=== PATIENT | female | born 1960 | race Caucasian/White ===

== ENCOUNTER 2018-12-22 07:05 | Observation (INO) ==
--- NOTE | 2018-12-22 07:39 | Emergency Department Note ---
Disposition Clinical Impression: Chest pain Qualifiers: Chest pain type: unspecified Qualified Code(s): R07.9 - Chest pain, unspecified Disposition: Admitted As Inpatient Condition: Fair Time of Disposition: 09:44 General Adult HPI - General Stated complaint: CP Time Seen by Provider: 12/22/18 07:07 Nursing Notes Reviewed: Yes Vital Signs Reviewed: Yes - History of Present Illness HPI Narrative: Presents with chest tightness which began at home last night and is constant but intermittently worse and is worse with exertion and she does have associated diaphoresis and dyspnea but none at this time. She denies any pleuritic aspect. There is radiation to the left shoulder and left neck but no radiation to the back. No pain or swelling of the lower extremities. 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 She said about a month ago she had some left facial droop but she checked her cranial nerves and these were all normal so she did not see a physician and then did go to the primary care doctor 2 weeks later and is waiting for follow-up with a specialist so there is no specific diagnosis of a stroke. SH: She was a smoker but stopped smoking in 2003. No alcohol. Family history: Positive for hypertension and stroke in her father but no specific history of heart disease. - Related Data Home Medications Medication Instructions Recorded Confirmed Ibuprofen [Motrin] 200 mg PO Q4HR PRN 02/22/17 02/22/17 Levothyroxine [Synthroid] [place] [address]/22/17 02/22/17 Loratadine [Claritin] 10 mg PO DAILY 02/22/17 02/22/17 Propranolol LA (24 HR) [Inderal LA] 80 mg PO DAILY 02/22/17 02/22/17 Spironolactone [Aldactone] 50 mg PO DAILY 02/22/17 02/22/17 Tramadol HCl [Ultram] 50 mg PO BID PRN 02/22/17 02/22/17 hydroCHLOROthiazide 25 mg PO DAILY 02/22/17 02/22/17 [Hydrochlorothiazide] Allergies Allergy/AdvReac Type Severity Reaction Status Date / Time codeine Allergy Hives Verified 02/22/17 10:53 moxifloxacin [From Avelox] Allergy See Verified 02/22/17 10:53 Comments prochlorperazine Allergy Hives Verified 02/22/17 10:53 [From Compazine] promethazine [From Phenergan] Allergy Hives Verified 02/22/17 10:53 All systems ED: reviewed and negative except as stated. Past Medical History - Past Medical History Medical history: Reports: arthritis, hyperlipidemia, thyroid disease Surgical history: Reports: appendectomy, hysterectomy Psychiatric history: Reports: no psych history - Social History Smoking Status: Former smoker Alcohol use: Reports: none Drug use: Reports: none Physical Exam CONSTITUTIONAL: Well-appearing; well-nourished; A&O X 3, in no apparent distress HEAD: Normocephalic; atraumatic EYES: PERRL, no scleral icterus NOSE: The nose is normal in appearance without rhinorrhea NECK: No JVD or distended neck veins RESP: Normal chest excursion with respiration; breath sounds clear and equal bilaterally; no wheezes, rhonchi, or rales CARD: Regular rhythm, without murmurs, rub or gallop ABD: Non-distended; non-tender, soft, without rigidity, rebound or guarding,no pulsatile mass CHEST: No pain with palpation SKIN: Normal for age and race; warm and dry without diaphoresis ; no apparent lesions EXTREMITIES: Pulses are 2 plus and equal times 4 extremities, no peripheral sandra ma or calf muscle pain Course Vital Signs Temperature 97.6 F 12/22/18 07:25 Pulse Rate 54 12/22/18 07:25 Respiratory Rate 15 12/22/18 07:25 Blood Pressure 136/83 12/22/18 07:25 O2 Sat by Pulse Oximetry 100 12/22/18 07:25 Temperature 97.6 F 12/22/18 07:34 Pulse Rate 52 12/22/18 09:22 Respiratory Rate 12 12/22/18 09:22 Blood Pressure 94/68 12/22/18 09:22 O2 Sat by Pulse Oximetry 98 12/22/18 09:22 Oxygen Delivery Oxygen Delivery Room Air Medical Decision Making - MDM Narrative Medical decision making narrative: Patient's symptoms are concerning for ACS and I did review her EKG which shows sinus bradycardia with a rate of 54 and I do not see evidence of acute ischemic change and there is no evidence of arrhythmia so we do have testing which will include troponin testing and I do not feel the patient has a pulmonary embolism as there is no pain or swelling of the lower extremities either subjectively or my exam and there is no radiation to the back. I will not able to reproduce the pain with palpation. Test results pending. [id number] I did review the test results which did come back negative and then spoke with the patient and her and they do request a d-dimer because of the low oxygen level last night when she checked her saturation and I did a d-dimer and this came back negative also. The patient does have a negative chest x-ray. I have seen her multiple occasions and spoke with her and her and updated them on the results of the tests. The patient does have a concerning story with the chest pain and diaphoresis and dyspnea and radiation to left shoulder and jaw as well as history of a positive stress test 10 years ago although of note she did have a subsequent catheterization 10 years ago which was negative. She will be admitted to the hospital and I did speak with the hospitalist who accepts the patient for admission. [id number] - Medical Records Medical records reviewed: Yes I reviewed the patient's medical records. - Lab Data Lab results reviewed: Yes I reviewed the patient's lab results. Result diagrams: 12/22/18 07:32 12/22/18 07:32 Lab Results 12/22/18 12/22/18 12/22/18 Range/Units 07:32 07:32 08:39 WBC 4.4 (4.3-11.1) K/mcL RBC 3.76 L (3.82-4.97) M/mcL Hgb 12.4 (11.5-15.4) g/dL Hct 35.1 L (35.3-44.9) % MCV 93.4 (83.0-100.0) fL MCH 33.0 (28.0-33.3) pg MCHC 35.3 (31.6-35.5) g/dL RDW 11.9 (11.5-14.5) % Plt Count 227 (140-400) K/mcL MPV 10.2 (9.4-12.4) fL Immature Gran % 0.2 (0-4) % Seg Neutrophils % 47.8 % Lymphocytes % 38.4 % Monocytes % 11.1 % Eosinophils % 1.8 % Basophils % 0.7 % Neutrophils # 2.1 (1.6-8.9) K/mcL Lymphocytes # 1.7 (0.6-4.6) K/mcL Monocytes # 0.5 (0.0-1.3) K/mcL Eosinophils # 0.1 (0.0-0.6) K/mcL Basophils # 0.0 (0.0-0.2) K/mcL D-Dimer 247 (0-500) ng/mLFEU Sodium 137 (136-145) mEq/L Potassium 3.3 L (3.5-5.1) mEq/L Chloride 102 (98-107) mEq/L Carbon Dioxide 28 (23-29) mEq/L BUN 27 H (6-20) mg/dL Creatinine 0.68 (0.60-1.20) mg/dL Est GFR ( Amer) > 60 (> 60) Est GFR (Non-Af Amer) > 60 (> 60) BUN/Creatinine Ratio 40 H (6-26) Glucose 104 (70-105) mg/dL Calculated Osmolality 289 (280-300) Calcium 9.9 (8.6-10.3) mg/dL Troponin I < 0.03 (< 0.04) ng/mL - Radiology Data Radiology results reviewed: Yes I reviewed the patient's radiology results.
[2018-12-22 07:43] LABS: Basophils % 0.7 %; Eosinophils # 0.1 K/mcL (0.0-0.6); Eosinophils % 1.8 %; Hematocrit 35.1 % (35.3-44.9); Hemoglobin 12.4 g/dL (11.5-15.4); Immature Granulocytes % 0.2 % (0-4); Lymphocytes # 1.7 K/mcL (0.6-4.6); Lymphocytes % 38.4 %; Mean Corpuscular HGB Conc 35.3 g/dL (31.6-35.5); Mean Corpuscular Volume 93.4 fL (83.0-100.0); Mean Platelet Volume 10.2 fL (9.4-12.4); Monocytes # 0.5 K/mcL (0.0-1.3); Monocytes % 11.1 %; Neutrophils # 2.1 K/mcL (1.6-8.9); Platelet Count 227 K/mcL (140-400); Red Blood Count 3.76 M/mcL (3.82-4.97); Red Cell Distribution Width 11.9 % (11.5-14.5); Segmented Neutrophils % 47.8 %
[2018-12-22] MEDS ORDERED: Ibuprofen 600 MG TABLET PO ONE (08:03)
[2018-12-22 08:06] LABS: BUN/Creatinine Ratio 40 (6-26); Blood Urea Nitrogen 27 mg/dL (6-20); Calcium 9.9 mg/dL (8.6-10.3); Carbon Dioxide 28 mEq/L (23-29); Chloride 102 mEq/L (98-107); Glucose 104 mg/dL (70-105); Osmolality,Calculated 289 (280-300); Potassium 3.3 mEq/L (3.5-5.1); Sodium 137 mEq/L (136-145); Troponin I < 0.03 ng/mL (< 0.04); eGFR For Non-African Americans > 60 (> 60)
[2018-12-22] MEDS ORDERED: Ondansetron 4 MG/2 ML VIAL IVP ONE (08:21)
[2018-12-22] MEDS ORDERED: Naloxone 0.4 MG/ML INJ IVP PRN (10:04)
[2018-12-22] MEDS ORDERED: traMADol 50 MG TABLET PO PRN (10:04)
[2018-12-22] MEDS: Nitroglycerin 0.4 MG TAB.SUBL SL PRN ×3 (10:54→18:02)
[2018-12-22] MEDS: Aspirin Enteric Coated 81 MG Tablet PO SCH (10:54)
[2018-12-22] MEDS ORDERED: *HR* Morphine 2 MG/ML SYRINGE IVP STA (11:01)
[2018-12-22] MEDS ORDERED: Isovue-370 500 ML BOTTLE IVP ONE (12:07)
[2018-12-22] MEDS: Nitroglycerin 25 MG/250 ML INFUS..BTL IVC SCH (12:45)
--- NOTE | 2018-12-22 13:12 | Internal Med History&Physical ---
Date of Encounter: 12/22/18 Time of Encounter: 13:03 Internal Medicine - H&P: HPI Chief complaint: chest pain Plans for Post Hospital Care: Home History of present illness: Ms. Mcghee is a 58 year old female PMH of hypothyroidism, hypertension, essential tremors, PVCs. Patient presented to the ED due to chest pain. Patient reports intermittent chest pain for the past 6 months. Usually at night. Reports that last night at around 8pm she started having retro-sternal chest pain associated with shortness of breath, and lightheadedness, the pain lasted about 30 minutes and she decided to stay home because she thought this was just another episode of her usual chest discomfort, but today morning she started having 8/10 retro-sternal chest pain radiating to her left arm and jaw, lasting around 20 minutes and decided to come to the ED to be checked. Denies abdominal pain, headache, or urinary symptoms. Past Med Surg Social Fam HX - Past Medical History Medical history: arthritis, hyperlipidemia, thyroid disease Additional medical history: Fibromyalgia, Arrhythmia with PVCs. Essential tremors Psychiatric history: no psych history - Past Surgical History Surgical History: appendectomy, hysterectomy Additional surgical history: Left hip rx. Left Breast Biopsy. Tonsils. Tubal ligation. CTR. Cervical Discectomy - Social History Smoking Status: Former smoker Smokeless Tobacco Status: No Alcohol use: none Drug use: none Internal Medicine - H&P: Meds Ibuprofen [Motrin] 800 mg PO HS PRN 02/22/17 [History] Levothyroxine [Synthroid] 75 mcg PO QAM 02/22/17 [History] RX: Loratadine [Claritin] 10 mg PO DAILY 02/22/17 [History] RX: hydroCHLOROthiazide [Hydrochlorothiazide] 25 mg PO DAILY 02/22/17 [History] Ibuprofen [Ibu-200] 600 mg PO DAILY PRN 12/22/18 [History] Phenytoin ER [Dilantin ER] 100 mg PO BID 12/22/18 [History] Propranolol HCl [Innopran Xl] 80 mg PO DAILY 12/22/18 [History] RX: Lisinopril [Zestril] 2.5 mg PO DAILY 12/22/18 [History] Allergy/AdvReac Type Severity Reaction Status Date / Time codeine Allergy Hives Verified 02/22/17 10:53 moxifloxacin [From Avelox] Allergy See Verified 02/22/17 10:53 Comments prochlorperazine Allergy Hives Verified 02/22/17 10:53 [From Compazine] promethazine [From Phenergan] Allergy Hives Verified 02/22/17 10:53 All Systems PM: A 10-system review of systems was performed and is negative for pertinent findings except as documented above in the HPI. - Constitutional Constitutional: no chills, no fever(s), no weakness - EENT Eyes: no blurry vision, no irritation Nose, mouth and throat: no dry mouth, no mouth pain - Cardiovascular Cardiovascular ROS IM: chest pain, dyspnea, no dyspnea on exertion, no lightheadedness, no palpitations, no paroxysmal nocturnal dyspnea - Respiratory Respiratory: no cough, no wheezing - Gastrointestinal Gastrointestinal: nausea, no abdominal pain, no vomiting - Genitourinary Genitourinary: no dysuria, no urinary frequency, no urinary incontinence, no urinary urgency - Musculoskeletal Musculoskeletal ROS IM: no atrophy, no muscle weakness - Integumentary Integumentary IM: no erythema - Neurological Neurological ROS: no headache(s), no tremor(s), no weakness - Psychiatric Psychiatric: no anxiety, no hopelessness - Endocrine Endocrine IM: no cold intolerance, no excessive sweating - Hematologic/Lymphatic Hematologic/Lymphatic: no lymphadenopathy - Allergic/Immunologic Allergic/Immunologic: no GI upset with certain foods Additional comments: Rest of the review of system negative - Constitutional Vitals: Temp Pulse Resp BP Pulse Ox 98.5 F 51 16 120/48 97 12/22/18 10:50 12/22/18 10:50 12/22/18 10:50 12/22/18 10:50 12/22/18 10:50 Exam: Vitals: Reviewed. General: Alert and oriented x4. In mild distress due to chest pain Skin: Normal color, no rash, no lesions. HEENT: EOM, pupils equal, round and reactive. Cardiovascular: RRR, normal S1 & S2, no rubs, murmurs or gallops. Lungs: CTA b/l, no wheezes or crackles. Abdomen: Soft, non-tender, no rigidity. Extremities: No deformity, no edema or tenderness, no joint swelling or clubbing. Neurological: Normal cognition and motor skills. Rest of the physical exam is non contributory Internal Med - H&P Results - Labs CBC & Chem 7: 12/22/18 07:32 12/22/18 07:32 Labs: Short CBC 12/22/18 Range/Units 07:32 WBC 4.4 (4.3-11.1) K/mcL Hgb 12.4 (11.5-15.4) g/dL Hct 35.1 L (35.3-44.9) % Plt Count 227 (140-400) K/mcL Neutrophils # 2.1 (1.6-8.9) K/mcL BMP 12/22/18 07:32 Sodium 137 Potassium 3.3 L Chloride 102 Carbon Dioxide 28 BUN 27 H Creatinine 0.68 Glucose 104 Calcium 9.9 Cardiac Enzymes 12/22/18 Range/Units 07:32 Troponin I < 0.03 (< 0.04) ng/mL - Impressions ITS Impressions Chest X-Ray 12/22/18 07:25 IMPRESSION: No acute cardiopulmonary findings. D/ / Neelima Gold MD / Neelima Gold MD Interpreting Provider: Neelima Gold MD - Diagnostic Studies Chest x-ray Status: image reviewed by me (No acute findings ) - Assessment and Plan (1) Chest pain Current Visit: Yes Status: Acute Assessment and plan: possible unstable angina. patient continues to reports chest pain despite IV pain medication Plan Serial troponin EKG started on a nitroglycerin drip Nitroglycerin 0.5 sublingual 3 every 15 minute when necessary BB held due to bradycardia Aspirin 81 mg by mouth daily TTE and cardiac nuclear stress test ordered Telemetry monitoring Discussed with cardiology [employer], they will evaluate the patient following TTE and stress test report. Qualifiers: Chest pain type: unspecified Qualified Code(s): R07.9 - Chest pain, unspecified (2) Hypothyroidism Current Visit: Yes Status: Chronic Assessment and plan: On levothyroxine 75 mcg/PO daily Qualifiers: Hypothyroidism type: unspecified Qualified Code(s): E03.9 - Hypothyroidism, unspecified (3) Hypertension Current Visit: Yes Status: Chronic Assessment and plan: Patient is on hydrochlorothiazide and lisinopril. Hold home antihypertensive medication as patient is started on a nitroglycerin drip Qualifiers: Hypertension type: unspecified Qualified Code(s): I10 - Essential (primary) hypertension (4) DVT prophylaxis Current Visit: Yes Status: Chronic Assessment and plan: Heparin subcutaneous. (5) Essential tremor Current Visit: Yes Status: Chronic Assessment and plan: patient on propranolol. hold medication as patient is bradycardic - Time Spent With Patient Total time spent is greater than 50% in coordination of care (as documented) at patient's floor/unit and/or counseling patient: Greater than 35 minutes (45)
[2018-12-22] MEDS: *HR* Heparin 5,000 UNIT/ML VIAL SQ SCH ×2 (15:03→23:11)
[2018-12-22] MEDS ORDERED: *HR* Morphine 2 MG/ML SYRINGE IVP ONE (18:11)
[2018-12-22] MEDS ORDERED: *HR* LORazepam 0.5 MG TABLET PO ONE (21:56)
[2018-12-23 01:12] LABS: Basophils % 0.8 %; Eosinophils # 0.1 K/mcL (0.0-0.6); Eosinophils % 2.3 %; Hematocrit 33.9 % (35.3-44.9); Hemoglobin 11.8 g/dL (11.5-15.4); Immature Granulocytes % 0.3 % (0-4); Lymphocytes # 1.9 K/mcL (0.6-4.6); Lymphocytes % 48.7 %; Mean Corpuscular HGB Conc 34.8 g/dL (31.6-35.5); Mean Corpuscular Hemoglobin 32.8 pg (28.0-33.3); Mean Corpuscular Volume 94.2 fL (83.0-100.0); Mean Platelet Volume 10.4 fL (9.4-12.4); Monocytes # 0.4 K/mcL (0.0-1.3); Monocytes % 9.6 %; Neutrophils # 1.5 K/mcL (1.6-8.9); Platelet Count 202 K/mcL (140-400); Segmented Neutrophils % 38.3 %
[2018-12-23 01:32] LABS: BUN/Creatinine Ratio 23 (6-26); Blood Urea Nitrogen 15 mg/dL (6-20); Calcium 9.2 mg/dL (8.6-10.3); Carbon Dioxide 26 mEq/L (23-29); Chloride 105 mEq/L (98-107); Glucose 139 mg/dL (70-105); Osmolality,Calculated 287 (280-300); Phosphorous 3.5 mg/dL (2.7-4.5); Potassium 3.6 mEq/L (3.5-5.1); Sodium 137 mEq/L (136-145); eGFR For Non-African Americans > 60 (> 60)
[2018-12-23] MEDS: *HR* Heparin 5,000 UNIT/ML VIAL SQ SCH ×3 (05:56→21:51)
[2018-12-23] MEDS ORDERED: Regadenoson 0.4 MG/5 ML SYRINGE IVP ONE (06:17)
[2018-12-23] MEDS: Aspirin Enteric Coated 81 MG Tablet PO SCH (09:47)
--- NOTE | 2018-12-23 10:39 | Internal Med Progress Note ---
Hospitalist Progress Note - Encounter Date of Encounter: 12/23/18 Time of Encounter: 10:37 - Subjective Interval History: Patient seen and examined with family present at bedside. Pt is s/p stress test this morning. She states she had pressure like chest pain prior to initiation of the stress test and reports of being hypotensive during the test, and required IV fluid resuscitation. Currently she is resting in bed and states she is comfortably and denies any headache, dizziness, lightheadedness, chest pain, palpitations, or shortness of breath. No overnight events reported Ten point ROS is negative except as listed above - Exam Vitals: Temp Pulse Resp BP Pulse Ox 98.2 F 68 18 131/74 98 12/23/18 10:05 12/23/18 10:05 12/23/18 10:05 12/23/18 10:05 12/23/18 10:05 Exam: General: Alert and oriented x3. No acute distress Skin: Normal color, no rash, no lesions. HEENT: EOMI, PERRLA NC/AT, no scleral icterus Cardiovascular: RRR, normal S1 & S2, no rubs, murmurs or gallops. Lungs: CTA b/l, no wheezes or crackles. Abdomen: Soft, non-tender, no rigidity. Extremities: No deformity, no edema or tenderness, no joint swelling or clubb ing. Neurological: Normal cognition and motor skills. Rest of the physical exam is non contributory - Assessment and Plan (1) Chest pain Current Visit: Yes Status: Acute Assessment and Plan: possible unstable angina. patient continues to report of intermittent left sided chest pain with radiation to the jaw and left arm s/p stress test today (12/23/18), report pending serial troponin negative thus far 2D echo report reviewed cardiology evaluation has been requested continue Aspirin 81mg PO qdaily holding BB due to hypotensive episode earlier today. BP and HR within acceptable range at this time continue Telemetry monitoring (2) Hypothyroidism Current Visit: Yes Status: Chronic Assessment and Plan: Continue home dose of levothyroxine 75 mcg/PO daily (3) Hypertension Current Visit: Yes Status: Chronic Assessment and Plan: BP within acceptable range despite holding antihypertensive medications was reported of being hypotensive this morning requiring IV fluid resuscitation will hold antihypertensive meds at this time continue to closely monitor BP (4) DVT prophylaxis Current Visit: Yes Status: Chronic Assessment and Plan: Heparin subcutaneous. (5) Essential tremor Current Visit: Yes Status: Chronic Assessment and Plan: Holding home dose of BB due to bradycardia and hypotension clinically asymptomatic at this time - Time Spent with Patient Total time spent is greater than 50% in coordination of care (as documented) at patient's floor/unit and/or counseling patient: 25 - 35 minutes (patient/family/RN/consulting provider) Plan of Care Discussed with: patient Internal Medicine: Result - Labs CBC & Chem 7: 12/23/18 00:53 12/23/18 00:53 Labs: Short CBC 12/23/18 Range/Units 00:53 WBC 3.8 L (4.3-11.1) K/mcL Hgb 11.8 (11.5-15.4) g/dL Hct 33.9 L (35.3-44.9) % Plt Count 202 (140-400) K/mcL Neutrophils # 1.5 L (1.6-8.9) K/mcL BMP 12/23/18 00:53 Sodium 137 Potassium 3.6 Chloride 105 Carbon Dioxide 26 BUN 15 Creatinine 0.64 Glucose 139 H Calcium 9.2 Cardiac Enzymes 12/22/18 12/22/18 12/23/18 Range/Units 13:09 18:55 00:53 Troponin I < 0.03 < 0.03 < 0.03 (< 0.04) ng/mL - ABG Interpretation ABG results: PT/INR, D-dimer D-Dimer 247 ng/mLFEU (0-500) 12/22/18 08:39 - Impressions Impressions Echocardiogram 12/22/18 10:10 Impressions: LVEF 60%. Normal LV chamber size, wall thickness and function. Mild left ventricular diastolic dysfunction. Normal right ventricular structure and function. No evidence of pulmonary hypertension. No significant valvular dysfunction. Left Ventricular Wall Motion: Rest Echo Findings All wall segments showed normal motion. Findings: Study Quality * Technically adequate exam. ECG Findings * Sinus bradycardia. Left Ventricle * LVEF 60%. * Normal LV chamber size, wall thickness and function. * Mild left ventricular diastolic dysfunction. Right Ventricle * Normal right ventricular structure and function. Left Atrium * Normal left atrial size. Right Atrium * Normal right atrial size. Aortic Valve * Trileaflet aortic valve. * No aortic stenosis. * Trace aortic regurgitation. Mitral Valve * Normal mitral valve structure and function. * No mitral stenosis. * Trace mitral regurgitation. Tricuspid Valve * Normal tricuspid valve structure and function. * Trace tricuspid regurgitation. * No evidence of pulmonary hypertension. Pulmonic Valve * Pulmonic valve is not well visualized. * No pulmonic regurgitation. Aorta * Normally sized aortic root. Pericardium * The pericardium appears normal. IVC * Normal IVC dimensions and inspiratory collapse. Pulmonary Artery * Normal visualized portions of the main pulmonary artery. CT Dissection 12/22/18 12:07 IMPRESSION: No evidence of aortic dissection. D/ / 12/22/2018 14:37:39 Lawson Rojas MD / david rabago Interpreting Provider: Lawson Rojas MD Consult Discharge Plan - Plan Referrals: Varghese Muhammad DO [Primary Care Provider] - (This office closes at noon on Fridays. Pt will need to make own follow up appointment if she leaves over the weekend) (1) Chest pain Qualifiers: Chest pain type: unspecified Qualified Code(s): R07.9 - Chest pain, unspecified (2) Hypothyroidism Qualifiers: Hypothyroidism type: unspecified Qualified Code(s): E03.9 - Hypothyroidism, unspecified (3) Hypertension Qualifiers: Hypertension type: unspecified Qualified Code(s): I10 - Essential (primary) hypertension
[2018-12-23] MEDS: Nitroglycerin 25 MG/250 ML INFUS..BTL IVC SCH (13:27)
[2018-12-23] MEDS: Nitroglycerin 0.4 MG TAB.SUBL SL PRN ×2 (13:31→13:44)
[2018-12-23] MEDS ORDERED: *HR* LORazepam 0.5 MG TABLET PO ONE (22:45)
[2018-12-24] MEDS: *HR* Heparin 5,000 UNIT/ML VIAL SQ SCH (05:37)
[2018-12-24] MEDS: Aspirin Enteric Coated 81 MG Tablet PO SCH (07:12)
[2018-12-24 07:13] VITALS: BP 112/72
--- NOTE | 2018-12-24 09:22 | Cardiology Consult Note ---
Addendum entered and electronically signed by Efrain Jacobson MD 12/24/18 12:35: I examined this patient and my medical decision-making was reviewed with the LIGHTOUT EXAMINER. I agree with the documented findings, disposition and treatment plan as described except to the extent set forth below. A/P: Chest pain ruled out HI with negative stress test Dyslipidemia HTN At this point, no indication for LHC. Add imdur 30mg and dc ACEI. If continued concern of sxs, consider outpt cardiac CT Thank you for the consult and allowing me to participate in your patient's care Efrain Jacobson MD [facility] Original Note: Date of Encounter: 12/24/18 Time of Encounter: 09:21 Assessment and Plan (1) Chest pain Current Visit: Yes Status: Acute Intermittent CP x 6 months with typical and atypical features. Risk factors for CAD include HLD, HTN. Episode that prompted admission was chest pain associated with shortness of breath, and lightheadedness, radiating to her left arm and jaw. Troponins were negative, nuclear stress test negative for ischemia or infarct. TTE EF preserved. Pt has continued to have intermittent CP while inpt. Will discuss with Dr. Jacobson to determine if further ischemic eval (LHC) is war ranted. Qualifiers: Chest pain type: unspecified Qualified Code(s): R07.9 - Chest pain, unspecified Discussion w patient/family: The assessment and plan as outlined above was discussed with the patient and/or family members who expressed understanding and agreement. All questions were answered. Thank you for involving us in the care of your patient. Please call with any questions. I will discuss and review with Dr. Jacobson and make changes as necessary. History of Present Illness Consult date: 12/24/18 Requesting physician: Kat Harris Consult reason: chest pain Chief complaint: Chest pain History of present illness: Ms. Mcghee is a 58 year old female with PMH of HLD, HTN, PVCs, hypothyroidism, seizure w/o clear trauma (last 1996), tremor, cervical radiculopathy hardware, left KETURAH that presents to ED for chest pain. It has been intermittent for the past 6 months, at rest and exertion. Episode that prompted admission was chest pain associated with shortness of breath, and lightheadedness, radiating to her left arm and jaw. Sometimes relieved with nitro. Troponins were negative, nuclear stress test negative for ischemia or infarct. TTE EF preserved. Pt has continued to have intermittent CP while inpt. Cardiology consulted for further recs. Past Med Surg Social Fam HX - Past Medical History Medical history: arthritis, hyperlipidemia, thyroid disease Additional medical history: Fibromyalgia, Arrhythmia with PVCs. Essential tremors Psychiatric history: no psych history - Past Surgical History Surgical History: appendectomy, hysterectomy Additional surgical history: Left hip rx. Left Breast Biopsy. Tonsils. Tubal ligation. CTR. Cervical Discectomy - Social History Smoking Status: Former smoker Smokeless Tobacco Status: No Alcohol use: none Drug use: none Medications and Allergies Ibuprofen [Motrin] 800 mg PO HS PRN 02/22/17 [History] Levothyroxine [Synthroid] 75 mcg PO QAM 02/22/17 [History] Loratadine [Claritin] 10 mg PO DAILY 02/22/17 [History] hydroCHLOROthiazide [Hydrochlorothiazide] 25 mg PO DAILY 02/22/17 [History] Ibuprofen [Ibu-200] 600 mg PO DAILY PRN 12/22/18 [History] Lisinopril [Zestril] 2.5 mg PO DAILY 12/22/18 [History] Phenytoin ER [Dilantin ER] 100 mg PO BID 12/22/18 [History] Propranolol HCl [Innopran Xl] 80 mg PO DAILY 12/22/18 [History] Allergy/AdvReac Type Severity Reaction Status Date / Time codeine Allergy Hives Verified 02/22/17 10:53 moxifloxacin [From Avelox] Allergy See Verified 02/22/17 10:53 Comments prochlorperazine Allergy Hives Verified 02/22/17 10:53 [From Compazine] promethazine [From Phenergan] Allergy Hives Verified 02/22/17 10:53 All Systems Review: The remainder of the systems were reviewed and are negative - Cardiovascular Cardiovascular: as per HPI, chest pain at rest, chest pain with exertion, radiating jaw, neck or arm pain, lightheadedness Physical Examination Vital Signs, Last 4 Hours Temp Pulse Resp BP Pulse Ox 12/24/18 07:12 98.2 F 58 18 112/72 95 Vital Signs Temp Pulse Resp BP Pulse Ox 12/24/18 07:12 98.2 F 58 18 112/72 95 12/24/18 03:28 97.7 F 53 16 116/69 96 12/23/18 23:07 98.0 F 57 16 108/66 97 12/23/18 19:40 98.5 F 58 18 97/61 96 12/23/18 16:27 98.2 F 62 18 108/67 97 12/23/18 11:39 98.2 F 61 18 93/56 100 12/23/18 10:05 98.2 F 68 18 131/74 98 Intake and Output 12/23/18 12/24/18 12/24/18 23:59 07:59 15:59 Intake Total 700 / 700 Output Total 500 / 500 1600 / 1600 Balance 200 / 200 -1600 / -1600 Intake: Oral 700 / 700 Output: Urine 500 / 500 1600 / 1600 Other: Weight 53.3 kg Patient Weight 12/24/18 23:59 Weight 53.3 kg General: Conversant, No Apparent Distress HEENT: Atraumatic, Normocephaly, Mucus Membranes Moist Neck: No JVD, Normal carotid pulses Cardiac: Reg Rate and Rhythm, Normal S1 and S2, No Murmur Lungs: Normal Breath Sounds, No Wheeze, Rales, Rhonchi Neuro: Alert and responsive, No focal deficits noted Abdomen: Soft, Non-Tender Skin: No rashes noted on visualized skin Musculoskeletal: No Chest Wall Tenderness Extremities: No Clubbing, No Cyanosis, No Edema, Normal Pulses Results 12/23/18 00:53 12/23/18 00:53 Active Medications Aspirin (Aspirin Ec) 81 mg PO DAILY [facility] Stop: 06/23/19 10:16 Last Admin: 12/24/18 07:12 Dose: 81 mg Heparin Sodium (Porcine) (Heparin) 5,000 unit SQ Q8HCO [facility] Stop: 06/23/19 14:01 Last Admin: 12/24/18 05:37 Dose: 5,000 unit Nitroglycerin (Nitroglycerin Premix 25 Mg/250 Ml) 25 mg in 250 mls @ 3 mls/hr IVC .Q24H [facility]; Protocol Stop: 06/23/19 12:16 Last Admin: 12/23/18 13:27 Dose: Not Given Levothyroxine Sodium (Synthroid) 75 mcg PO DAILY@0630 [facility] Stop: 06/24/19 06:31 Last Admin: 12/24/18 05:37 Dose: 75 mcg Naloxone HCl (Narcan) 0.4 mg IVP Q2M PRN PRN Reason: SEE COMMENTS Stop: 06/23/19 10:05 Nitroglycerin (Nitroglycerin) 0.4 mg SL Q5M PRN PRN Reason: Chest Pain Stop: 06/23/19 10:22 Last Admin: 12/23/18 13:44 Dose: 0.4 mg Phenytoin (Dilantin) 100 mg PO Q12HR [facility] Stop: 06/23/19 18:01 Last Admin: 12/24/18 05:37 Dose: 100 mg Tramadol HCl (Ultram) 50 mg PO Q6HR PRN PRN Reason: Moderate Pain Stop: 06/23/19 10:05 - Imaging and Cardiology Stress Test: report reviewed Echo: report reviewed - EKG Interpretation EKG results cardiology: personally reviewed (SR), other (12 hr tele AVG HR 56, SR) Consult Discharge Plan - Plan Referrals: Varghese Muhammad, [Primary Care Provider] - (This office closes at noon on Fridays. Pt will need to make own follow up appointment if she leaves over the weekend)
[2018-12-24 09:33] LABS: Basophils % 0.6 %; Eosinophils # 0.1 K/mcL (0.0-0.6); Eosinophils % 2.2 %; Hematocrit 35.8 % (35.3-44.9); Hemoglobin 12.2 g/dL (11.5-15.4); Immature Granulocytes % 0.3 % (0-4); Lymphocytes # 1.6 K/mcL (0.6-4.6); Lymphocytes % 50.3 %; Mean Corpuscular HGB Conc 34.1 g/dL (31.6-35.5); Mean Corpuscular Hemoglobin 32.6 pg (28.0-33.3); Mean Corpuscular Volume 95.7 fL (83.0-100.0); Mean Platelet Volume 10.2 fL (9.4-12.4); Monocytes # 0.3 K/mcL (0.0-1.3); Monocytes % 9.4 %; Neutrophils # 1.2 K/mcL (1.6-8.9); Platelet Count 206 K/mcL (140-400); Red Blood Count 3.74 M/mcL (3.82-4.97); Segmented Neutrophils % 37.2 %
[2018-12-24 09:36] LABS: BUN/Creatinine Ratio 28 (6-26); Blood Urea Nitrogen 17 mg/dL (6-20); Calcium 9.6 mg/dL (8.6-10.3); Carbon Dioxide 24 mEq/L (23-29); Chloride 104 mEq/L (98-107); Glucose 95 mg/dL (70-105); Osmolality,Calculated 283 (280-300); Phosphorous 3.7 mg/dL (2.7-4.5); Potassium 3.7 mEq/L (3.5-5.1); Sodium 136 mEq/L (136-145); eGFR For Non-African Americans > 60 (> 60)
--- NOTE | 2018-12-24 10:27 | Discharge Summary ---
- NOTES TO OUTPATIENT PROVIDER Notes to Outpatient Provider: Patient was admitted for evaluation of chest pain and underwent nuclear stress test. Stress test was negative for ischemic perfusion defect. She was noted to be hypotensive due to which her home dose of Lisinopril was discontinued and patient was recommended to hold HCTZ and Propranolol for SBP<100. Please closely monitor patient's BP and adjust antihypertensive medications as needed. Orders not resulted at time of discharge: Pending orders 12/22/18 10:11 NM kayley perf SPECT multi [NM] Routine Date of Encounter: 12/24/18 Time of Encounter: 10:03 - Discharge Diagnosis (1) Chest pain Priority: Primary Status: Resolved Qualifiers: Chest pain type: unspecified Qualified Code(s): R07.9 - Chest pain, unspecified (2) Hypothyroidism Priority: Secondary Status: Chronic Qualifiers: Hypothyroidism type: unspecified Qualified Code(s): E03.9 - Hypothyroidism, unspecified (3) Hypertension Priority: Secondary Status: Chronic Qualifiers: Hypertension type: unspecified Qualified Code(s): I10 - Essential (primary) hypertension (4) DVT prophylaxis Priority: Secondary Status: Chronic (5) Essential tremor Priority: Secondary Status: Chronic Hospital course: Ms. Mcghee is a 58 year old female with PMH of HTN, Hypothyroidism, essential t remors who was admitted for management of chest pain. Pt underwent nuclear stress test and had a 2D echo. Cardiac workup was negative for ACS. Cardiology evaluated the patient and outpatient follow up was recommended. Pt was noted to be hypotensive and bradycardic due to which her home BP meds were readjusted. Pt is currently chest pain free and medically stable for discharge to home with outpatient follow up with PCP and cardiology. Pt is seen and examined on the day of discharge. She demonstrates understanding of her hospital course and agrees with the discharge care and plan. Discharge discussed with: patient, nurse, rehabilitation consultant - Time Spent with Patient Total time spent providing and/or coordinating discharge services: 25 minutes Time spent: Less than 30 minutes - Discharge Medications Prescriptions: Continue Ibuprofen [Motrin] 800 mg PO HS PRN PRN Reason: Pain hydroCHLOROthiazide [Hydrochlorothiazide] 25 mg PO DAILY Loratadine [Claritin] 10 mg PO DAILY Levothyroxine [Synthroid] 75 mcg PO QAM Phenytoin ER [Dilantin ER] 100 mg PO BID Ibuprofen [Ibu-200] 600 mg PO DAILY PRN PRN Reason: Pain Propranolol HCl [Innopran Xl] 80 mg PO DAILY #0 Discontinued Lisinopril [Zestril] 2.5 mg PO DAILY Home Medications: Ibuprofen [Motrin] 800 mg PO HS PRN 02/22/17 [History] Levothyroxine [Synthroid] 75 mcg PO QAM 02/22/17 [History] Loratadine [Claritin] 10 mg PO DAILY 02/22/17 [History] hydroCHLOROthiazide [Hydrochlorothiazide] 25 mg PO DAILY 02/22/17 [History] Ibuprofen [Ibu-200] 600 mg PO DAILY PRN 12/22/18 [History] Phenytoin ER [Dilantin ER] 100 mg PO BID 12/22/18 [History] Propranolol HCl [Innopran Xl] 80 mg PO DAILY #0 12/24/18 [Rx] Allergies/Adverse Reactions: Allergy/AdvReac Type Severity Reaction Status Date / Time codeine Allergy Hives Verified 02/22/17 10:53 moxifloxacin [From Avelox] Allergy See Verified 02/22/17 10:53 Comments prochlorperazine Allergy Hives Verified 02/22/17 10:53 [From Compazine] promethazine [From Phenergan] Allergy Hives Verified 02/22/17 10:53 Date of admission: 12/22/18 09:47 Primary care physician: Varghese Muhammad Consults: 12/23/18 17:02 Consult to Cardiology [CONS] Routine Comment: Consulting Provider: Cardiology Shwetha Reason for Consult: Chest Pain Call Completed: No Discharging clinician: Kat Harris Anticipated date of discharge: 12/24/18 - Constitutional Vitals: Temp Pulse Resp BP Pulse Ox 98.2 F 58 18 112/72 95 12/24/18 07:12 12/24/18 07:12 12/24/18 07:12 12/24/18 07:12 12/24/18 07:12 Exam: General: Alert and oriented x3. No acute distress Skin: Normal color, no rash, no lesions. HEENT: EOMI, PERRLA NC/AT, no scleral icterus Cardiovascular: RRR, normal S1 & S2, no rubs, murmurs or gallops. Lungs: CTA b/l, no wheezes or crackles. Abdomen: Soft, non-tender, no rigidity. Extremities: No deformity, no edema or tenderness, no joint swelling or clubbing. Neurological: Normal cognition and motor skills. Rest of the physical exam is non contributory - Patient Status Disposition: Home, Self-Care Condition: Fair Functional capacity at discharge: independent ambulation Overall status at discharge: patient is back to baseline - Discharge Instructions Instructions: Chest Pain (DC) Follow Up With: Efrain Jacobson MD [Partnered Physician] - (Office will call patient at home with appointment date and time. ) Varghese Muhammad DO [Primary Care Provider] - (This office closes at noon on Fridays. Pt will need to make own follow up appointment if she leaves over the weekend) Forms: ED Satisfaction Letter Additional Instructions: Please follow up with your primary care physician within five days after your discharge from the hospital. Please follow up with your beam dyer operator within one to two weeks after your discharge from the hospital. Your home dose of Lisinopril is discontinued as per beam dyer operator's recommendations. Closely monitor your blood pressure at home. If your systolic blood pressure is less than 100, please hold your home dose Hydrochlorothiazide and Propranolol. Do not take Propranolol if your Heart rate is less than 60. Please resume all your other home medications as prescribed by your primary care physician. Please seek medical help if you have difficulty breathing or if chest pain recurs. - Diet and Activity Activity: resume usual activities as tolerated Diet: low fat, low cholesterol
[2018-12-24] MEDS ORDERED: Isosorbide MONOnitrate (24 HR) 30 MG TAB.ER.24H PO SCH (11:45)
--- NOTE | 2018-12-24 14:31 | Electrocardiograph Report ---
[facility] Test Date: 2018-12-22 Pat Name: Janet Mcghee Department: EXAM18 Room: 2N12 Gender: F Brickmason: : 1960 Requested By: Aaron Grover Order Number: [id number] Reading MD: Robin Stephen Measurements Intervals [place] Rate: 59 P: 42 CT: 175 QRS: 58 QRSD: 68 T: 59 QT: 426 QTc: 422 Interpretive Statements Sinus rhythm Minimal ST elevation, inferior leads Electronically Signed On 12-24-2018 14:29:44 EDT by Robin Stephen
== END 2018-12-24 11:10 | disposition home or self-care (01) ==
LOC: EMEROOARM 07:05 → 2SOUTHHOLD 07:05 → 2NNU 17:41
PROVIDERS: ADMIT Internal Medicine; ATTEND Internal Medicine